=== PATIENT | female | born 1930 | race Caucasian/White ===

== ENCOUNTER → 2017-02-24 | Outpatient (CLI) | payer MEDICARE, OTHER ==
[~2017-02-24] MED LIST: ASCO500 PO; ASPI325; ASPI325 PO; ASPI81CH PO; BACITO TOP; CALCAVITD PO; CARV25 PO; CEPH500 PO; COLE625 PO; Coreg CR20 MG PO; DIGO.125 PO; FAMO20 PO; FISH1000 PO; FURO20 PO; HYDACE5 PO; HYDHCL25 PO; HYDR1TAB94 PO; LEVFLO250 PO; LEVSOD100 PO; LEVSOD50 PO; MAGOXI400 PO; METO100ER PO; Macrobid 100 M100 MG PO; NITR.4SL SL; NITR100CA PO; NITRSPRAY SL; Norco 5-325 Ta1 EACH PO; ONDA4 PO; PHENA100 PO; PHENA200 PO; PSEU120ER PO; PSEUDOEPHEDRINE PO; Prilosec20 MG PO; Pyridium100 MG PO; RAMI5 PO; SPIR25 PO; SPIROLACTONE; TRAM50 PO; WARF3 PO; [UNRECOGNIZED DRUG - REMARK]
== END | disposition home or self-care (01) ==
LOC: LAB EV 17:04
DX: R30.0 Dysuria (principal)
CPT/HCPCS: 87086

== ENCOUNTER → 2017-08-24 | Outpatient (CLI) | payer MEDICARE, OTHER | END | disposition home or self-care (01) | LOC: LAB SHORT 09:50 → PLD 09:50 | DX: D48.5 Neoplasm of uncertain behavior of skin (principal) | CPT/HCPCS: 88305 ==